=== PATIENT | female | born 1935 | race Caucasian/White ===

== ENCOUNTER 2017-02-19 16:38 | Emergency (ER) | payer MEDICARE, OTHER ==
[~2017-02-19] VITALS: Ht 152.4 cm; Wt 65.2 kg
[~2017-02-19 16:38] MED LIST: AMOX-291 PO; ATEN50TA41 PO; ATOR10TA9 PO; CALC-192 PO; FELO2.5T PO; FELO5TAB PO; MULT-6 PO
[2017-02-19] MEDS ORDERED: MAALOX/HYOSCYAMINE/LIDOCAINE 45 ML BOTTLE ONE (17:11)
[2017-02-19] MEDS ORDERED: ASPIRIN 81 MG TABLET CHEW ONE (17:11)
[2017-02-19] MEDS ORDERED: MAALOX/HYOSCYAMINE/LIDOCAINE 45 ML BOTTLE PO ONE (17:30)
[2017-02-19] MEDS ORDERED: ASPIRIN 81 MG TABLET CHEW PO ONE (17:30)
[2017-02-19 17:54] LABS: BLOOD UREA NITROGEN 22 mg/dL (7-18)
[2017-02-19 17:59] LABS: IS PT STATUS REG ER OR PRE ER? YES
[2017-02-19 18:48] VITALS: BP 144/77
== END 2017-02-19 18:50 | disposition home or self-care (01) ==
LOC: ED 18:43
DX: R07.89 Other chest pain (principal); I10 Essential (primary) hypertension; I48.91 Unspecified atrial fibrillation
CPT/HCPCS: 36415; 71010; 80048; 82040; 84484; 85025; 93005

== ENCOUNTER → 2017-03-01 | Outpatient (CLI) | payer MEDICARE, OTHER ==
[2017-03-01 09:09] LABS: PATH.CAST-FLAG NOT PRESENT; SPERM-FLAG NOT PRESENT; SRC-FLAG NOT PRESENT; XTAL-FLAG NOT PRESENT; YLC-FLAG NOT PRESENT
[2017-03-01 09:16] LABS: ASPARTATE AMINO TRANSFERASE 20 U/L (15-37); BLOOD UREA NITROGEN 19 mg/dL (7-18)
== END | disposition home or self-care (01) ==
LOC: LAB 08:41
PROVIDERS: ATTEND Internal Medicine Nephrology
DX: I12.9 Hypertensive chronic kidney disease with stage 1 through stage 4 chronic kidney disease, or unspecified chronic kidney disease (principal); N18.3 Chronic kidney disease, stage 3 (moderate); D09 Carcinoma in situ of other and unspecified sites; Z90.5 Acquired absence of kidney
CPT/HCPCS: 36415; 80053; 81001; 85025

== ENCOUNTER → 2017-04-20 | Outpatient (CLI) | payer MEDICARE, OTHER | END | disposition home or self-care (01) | LOC: CFH 09:03 | PROVIDERS: ATTEND Internal Medicine Nephrology | DX: D09 Carcinoma in situ of other and unspecified sites (principal); I12.9 Hypertensive chronic kidney disease with stage 1 through stage 4 chronic kidney disease, or unspecified chronic kidney disease; N17.9 Acute kidney failure, unspecified; I70.8 Atherosclerosis of other arteries; M51.36 Other intervertebral disc degeneration, lumbar region; J98.11 Atelectasis; N18.3 Chronic kidney disease, stage 3 (moderate); Z90.5 Acquired absence of kidney | CPT/HCPCS: 74150 ==

== ENCOUNTER → 2017-05-06 | Outpatient (CLI) | payer MEDICARE, OTHER ==
[~2017-05-06] MED LIST changes: +OMNIPAQUE 350 MG/ML, 100ML BOTTLE ONE
== END | disposition home or self-care (01) ==
LOC: CFH 13:14
PROVIDERS: ATTEND Internal Medicine Cardiovascular Disease
DX: Z13.6 Encounter for screening for cardiovascular disorders (principal); R07.89 Other chest pain; I10 Essential (primary) hypertension
CPT/HCPCS: 75571; 93306; Q9967

== ENCOUNTER → 2017-06-16 | Outpatient (CLI) | payer MEDICARE, OTHER ==
[~2017-06-16] MED LIST changes: -OMNIPAQUE 350 MG/ML, 100ML BOTTLE ONE
[2017-06-16 08:30] LABS: HEMATOCRIT 39.8 % (34.6-47.8); HEMOGLOBIN 13.1 g/dL (11.7-16.4); WHITE BLOOD COUNT 6.8 x10^3/uL (3.4-10)
[2017-06-16 08:43] LABS: ASPARTATE AMINO TRANSFERASE 20 U/L (15-37); BLOOD UREA NITROGEN 34 mg/dL (7-18)
== END | disposition home or self-care (01) ==
LOC: LAB 08:17
PROVIDERS: ATTEND Internal Medicine Nephrology
DX: I12.9 Hypertensive chronic kidney disease with stage 1 through stage 4 chronic kidney disease, or unspecified chronic kidney disease (principal); N18.9 Chronic kidney disease, unspecified; D09 Carcinoma in situ of other and unspecified sites
CPT/HCPCS: 36415; 80053; 81003; 85025

== ENCOUNTER → 2017-09-20 | Outpatient (CLI) | payer MEDICARE, OTHER ==
[~2017-09-20] MED LIST changes: +ALEN70TA3 PO
[2017-09-20 08:54] LABS: HEMATOCRIT 39.9 % (34.6-47.8); HEMOGLOBIN 13.4 g/dL (11.7-16.4); WHITE BLOOD COUNT 6.4 x10^3/uL (3.4-10)
== END | disposition home or self-care (01) ==
LOC: LAB 08:38
PROVIDERS: ATTEND Family Medicine
DX: R05 Cough (principal); M79.641 Pain in right hand; M79.642 Pain in left hand
CPT/HCPCS: 36415; 85025

== ENCOUNTER → 2017-11-11 | Outpatient (CLI) | payer MEDICARE, OTHER ==
[2017-11-11 09:02] LABS: ALANINE AMINOTRANSFERASE 20 U/L (12-78); ALBUMIN 3.6 g/dL (3.4-5.0); ANION GAP 6 mmol/L (5-15); CALCIUM 8.6 mg/dL (8.5-10.1); CHLORIDE 106 mmol/L (98-107); CREATININE 1.13 mg/dL (0.55-1.02)
[2017-11-11 09:05] LABS: ALKALINE PHOSPHATASE 51 U/L (45-117); BILIRUBIN,TOTAL 0.5 mg/dL (0.2-1.0); CHOL/HDL RATIO 3.7; CHOLESTEROL, TOTAL 192 mg/dL (140-239); HDL CHOL % 27 % (28-40); HDL CHOLESTEROL (DIRECT) 52 mg/dL (40-60); LDL CHOLESTEROL,CALCULATED 111 mg/dL (54-169); LDL/HDL RATIO 2.1 (0.5-3.0); TOTAL PROTEIN 7.2 g/dL (6.4-8.2); TRIGLYCERIDES 143 mg/dL (50-200); VLDL CHOLESTEROL 29 mg/dL (0-25)
== END | disposition home or self-care (01) ==
LOC: LAB 08:36
PROVIDERS: ATTEND Nurse Practitioner Family
DX: I10 Essential (primary) hypertension (principal); E78.00 Pure hypercholesterolemia, unspecified; R00.2 Palpitations; R07.89 Other chest pain
CPT/HCPCS: 36415; 80053; 80061

== ENCOUNTER → 2018-03-21 | Outpatient (CLI) | payer MEDICARE, OTHER ==
[2018-03-21 12:54] LABS: THYROID STIMULATING HORMONE 1.43 mIU/L (0.358-3.740)
== END ==
LOC: CFH 10:46
PROVIDERS: ATTEND Internal Medicine Cardiovascular Disease
DX: I08.1 Rheumatic disorders of both mitral and tricuspid valves (principal); I10 Essential (primary) hypertension; I48.91 Unspecified atrial fibrillation
CPT/HCPCS: 36415; 84436; 84443; 84481; 93306

== ENCOUNTER → 2019-03-27 | Outpatient (CLI) | payer MEDICARE, OTHER ==
[2019-03-27 08:40] LABS: ALANINE AMINOTRANSFERASE 18 U/L (12-78); ALBUMIN 3.7 g/dL (3.4-5.0); ANION GAP 3 mmol/L (5-15); CALCIUM 8.7 mg/dL (8.5-10.1); CHLORIDE 109 mmol/L (98-107); CREATININE 1.02 mg/dL (0.55-1.02)
[2019-03-27 08:43] LABS: ALKALINE PHOSPHATASE 64 U/L (45-117); BILIRUBIN,TOTAL 0.7 mg/dL (0.2-1.0); CHOL/HDL RATIO 3.4; CHOLESTEROL, TOTAL 175 mg/dL (140-239); HDL CHOL % 29 % (28-40); HDL CHOLESTEROL (DIRECT) 51 mg/dL (40-60); LDL CHOLESTEROL,CALCULATED 94 mg/dL (54-169); LDL/HDL RATIO 1.8 (0.5-3.0); TOTAL PROTEIN 7.2 g/dL (6.4-8.2); TRIGLYCERIDES 150 mg/dL (50-200); VLDL CHOLESTEROL 30 mg/dL (0-25)
== END | disposition home or self-care (01) ==
LOC: LAB 08:16
PROVIDERS: ATTEND Internal Medicine Cardiovascular Disease
DX: I10 Essential (primary) hypertension (principal); E78.00 Pure hypercholesterolemia, unspecified; R00.2 Palpitations
CPT/HCPCS: 36415; 80053; 80061

== ENCOUNTER 2019-05-24 01:25 | Inpatient (IN) | payer MEDICARE, OTHER ==
[~2019-05-24] VITALS: Ht 162.6 cm; Wt 59.6 kg
[2019-05-25 13:27] VITALS: BP 133/75
== END 2019-05-25 18:32 | disposition home or self-care (01) | DRG 418 ==
LOC: ED 03:41 → EDIP 04:05 → 3NE 05:11
PROVIDERS: ADMIT Internal Medicine; ATTEND Internal Medicine
PROC: 0FT44ZZ Resection of Gallbladder, Percutaneous Endoscopic Approach (ICD-10-PCS; principal; 2019-05-25)
DX: K80.65 Calculus of gallbladder and bile duct with chronic cholecystitis with obstruction (principal); D68.59 Other primary thrombophilia; I10 Essential (primary) hypertension; E78.5 Hyperlipidemia, unspecified; E86.0 Dehydration; F41.9 Anxiety disorder, unspecified; I48.0 Paroxysmal atrial fibrillation; R07.89 Other chest pain; Z79.82 Long term (current) use of aspirin; Z79.899 Other long term (current) drug therapy; Z90.5 Acquired absence of kidney; Z90.710 Acquired absence of both cervix and uterus; Z90.49 Acquired absence of other specified parts of digestive tract
CPT/HCPCS: 36415; 71045; 74181; 76700; 80053; 80076; 80307; 81001; 83690; 83735; 84436; 84443; 84484; 85025; 85610; 87086; 88304; 93005; 99285; G0378; J0171; J1100; J1644; J2405; J2704; J3010; J3490; C1760; J0330; J2060; J2270; J7030

== ENCOUNTER 2019-10-17 13:13 | Outpatient (CLI) | payer MEDICARE, OTHER ==
[~2019-10-17 13:13] MED LIST changes: +ACET500T76 PO; -FELO2.5T PO; +FELO2.5T4 PO; -FELO5TAB PO; +FELO5TAB4 PO; +METO-290 PO; +ONDA4TAB7 PO
== END 2019-10-17 23:59 | disposition home or self-care (01) ==
LOC: CFH 13:13
PROVIDERS: ATTEND Internal Medicine Cardiovascular Disease
DX: I08.3 Combined rheumatic disorders of mitral, aortic and tricuspid valves (principal); I71.2 Thoracic aortic aneurysm, without rupture
CPT/HCPCS: 93306; 93356

== ENCOUNTER → 2019-12-01 | Outpatient (CLI) | payer MEDICARE, OTHER ==
[2019-12-01 08:17] LABS: BASOPHILS # (AUTO) 0.03 x10^3/uL (0-0.1); BASOPHILS % (AUTO) 1 % (0-1); EOSINOPHILS # (AUTO) 0.12 x10^3/uL (0-0.4); EOSINOPHILS % (AUTO) 2 % (1-7); LYMPHOCYTES % (AUTO) 30 % (22-44); MD NO; MEAN CORPUSCULAR HEMOGLOBIN 29.7 pg (27.0-34.8); MEAN PLATELET VOLUME 7.7 fL (7.4-10.4); MONOCYTES # (AUTO) 0.51 x10^3/uL (0.2-0.8); MONOCYTES % (AUTO) 8 % (2-9); NEUTROPHILS # (AUTO) 3.67 x10^3/uL (1.8-6.8); NEUTROPHILS % (AUTO) 59 % (42-75); PLATELET COUNT 291 x10^3/uL (130-400); RED CELL DISTRIBUTION WIDTH 14.8 % (9.6-15.2)
[2019-12-01 08:26] LABS: ALBUMIN 3.6 g/dL (3.4-5.0); ANION GAP 3 mmol/L (5-15); CALCIUM 8.6 mg/dL (8.5-10.1); CHLORIDE 109 mmol/L (98-107)
[2019-12-01 08:37] LABS: ALANINE AMINOTRANSFERASE 18 U/L (12-78); ALKALINE PHOSPHATASE 59 U/L (45-117); BILIRUBIN,TOTAL 0.4 mg/dL (0.2-1.0); CHOLESTEROL, TOTAL 190 mg/dL (140-239); CREATININE 1.06 mg/dL (0.55-1.02); HDL CHOL % 33 % (28-40); HDL CHOLESTEROL (DIRECT) 63 mg/dL (40-60); LDL CHOLESTEROL,CALCULATED 108 mg/dL (54-169); LDL/HDL RATIO 1.7 (0.5-3.0); T4 (THYROXINE) 10.9 mcg/dL (4.8-13.9); TOTAL PROTEIN 7.1 g/dL (6.4-8.2); TRIGLYCERIDES 95 mg/dL (50-200); VLDL CHOLESTEROL 19 mg/dL (0-25)
== END | disposition home or self-care (01) ==
LOC: LAB 08:02
PROVIDERS: ATTEND Family Medicine
DX: I12.9 Hypertensive chronic kidney disease with stage 1 through stage 4 chronic kidney disease, or unspecified chronic kidney disease (principal); E78.2 Mixed hyperlipidemia; E04.2 Nontoxic multinodular goiter
CPT/HCPCS: 36415; 80053; 80061; 82043; 84436; 84443; 85025

== ENCOUNTER 2020-05-19 07:20 | Emergency (ER) | payer MEDICARE, OTHER ==
[~2020-05-19] VITALS: Ht 162.6 cm; Wt 52.8 kg
[2020-05-19 07:22] VITALS: BP 131/67
--- NOTE | 2020-05-19 07:52 | NUR ---
PT TO CT
[2020-05-19] MEDS ORDERED: MECLIZINE CHEWABLE 25 MG TAB PO ONE (08:00)
--- NOTE | 2020-05-19 08:09 | NUR ---
"Balance was off yesterday, I did nt drink enough." Pt reports loss of appetite. Denies cp or sob. NOTE WRIITEN BY DAUGHTER STATES HALLUCINATIONS AND DIZZINESS.PT IN BED WITH CONT ESCALATOR INSTALLER, SPO2, BP Q 30 MIN, SIDE RAILS UP X2, CALLL LIGHT IN REACH. FAMILY AT BEDSIDE. WENT OVER PLAN OF CARE FROM ORDER LISTR, AGREES TO PLAN.
[2020-05-19 08:18] LABS: BASOPHILS # (AUTO) 0.04 x10^3/uL (0-0.1); BASOPHILS % (AUTO) 1 % (0-1); EOSINOPHILS # (AUTO) 0.07 x10^3/uL (0-0.4); EOSINOPHILS % (AUTO) 1 % (1-7); LYMPHOCYTES # (AUTO) 1.78 x10^3/uL (1-3.4); LYMPHOCYTES % (AUTO) 28 % (22-44); MD NO; MEAN CORPUSCULAR HEMOGLOBIN 29.1 pg (27.0-34.8); MEAN CORPUSCULAR HGB CONC 32.2 g/dL (32.4-35.8); MEAN CORPUSCULAR VOLUME 90.3 fL (80-100); MONOCYTES # (AUTO) 0.53 x10^3/uL (0.2-0.8); MONOCYTES % (AUTO) 8 % (2-9); NEUTROPHILS % (AUTO) 62 % (42-75); PLATELET COUNT 289 x10^3/uL (130-400); RED CELL DISTRIBUTION WIDTH 14.1 % (9.6-15.2)
[2020-05-19] MEDS ORDERED: MECLIZINE CHEWABLE 25 MG TAB ONE (08:19)
[2020-05-19 08:29] LABS: ALANINE AMINOTRANSFERASE 16 U/L (12-78); ALBUMIN 4.1 g/dL (3.4-5.0); ANION GAP 5 mmol/L (5-15); CALCIUM 9.1 mg/dL (8.5-10.1); CHLORIDE 108 mmol/L (98-107); CREATININE 0.92 mg/dL (0.55-1.02)
[2020-05-19 08:33] LABS: ALKALINE PHOSPHATASE 59 U/L (45-117); BILIRUBIN,TOTAL 0.7 mg/dL (0.2-1.0); TOTAL PROTEIN 7.8 g/dL (6.4-8.2); TROPONIN I < 0.015 ng/mL (0.000-0.045)
--- NOTE | 2020-05-19 08:45 | NUR ---
PT AMBULATED TO THE RESTROOM WITH STEADY GAIT, URINE SENT TO LAB.
[2020-05-19 08:54] LABS: MICROSCOPIC AUTO
[2020-05-19] MEDS ORDERED: CEFTRIAXONE PMX 1GM/50ML 50 ML IVPB ONE (09:00)
[2020-05-19] MEDS ORDERED: CEFTRIAXONE PMX 1GM/50ML 50 ML ONE (09:00)
[2020-05-19] MEDS ORDERED: AZITHROMYCIN 500 MG in SODIUM CHLORIDE 0.9% 250 ML IVPB ONE (09:00)
== END 2020-05-19 10:28 | disposition home or self-care (01) ==
LOC: ED 08:56
DX: J15.9 Unspecified bacterial pneumonia (principal); R42 Dizziness and giddiness; R63.0 Anorexia; R53.83 Other fatigue; R51 Headache; R94.31 Abnormal electrocardiogram [ECG] [EKG]; I10 Essential (primary) hypertension; E78.5 Hyperlipidemia, unspecified; I48.91 Unspecified atrial fibrillation; Z90.89 Acquired absence of other organs; Z90.710 Acquired absence of both cervix and uterus; Z90.722 Acquired absence of ovaries, bilateral
CPT/HCPCS: 36415; 70450; 71045; 80053; 81001; 82140; 83605; 84484; 85025; 87040; 93005; 96365; 96368; 99285; J0456; J0696; J7050

== ENCOUNTER 2020-06-10 21:19 | Observation (INO) | payer MEDICARE, OTHER ==
[~2020-06-10] VITALS: Ht 162.6 cm; Wt 58.6 kg
--- NOTE | 2020-06-10 21:36 | NUR ---
ERP TO BEDSIDE.
[2020-06-10] MEDS ORDERED: MECL12.581 PO (22:17)
[2020-06-10 22:32] LABS: BASOPHILS # (AUTO) 0.06 x10^3/uL (0-0.1); BASOPHILS % (AUTO) 1 % (0-1); EOSINOPHILS # (AUTO) 0.13 x10^3/uL (0-0.4); EOSINOPHILS % (AUTO) 2 % (1-7); LYMPHOCYTES # (AUTO) 2.04 x10^3/uL (1-3.4); LYMPHOCYTES % (AUTO) 36 % (22-44); MD NO; MEAN CORPUSCULAR HEMOGLOBIN 29.7 pg (27.0-34.8); MEAN CORPUSCULAR HGB CONC 33.1 g/dL (32.4-35.8); MEAN CORPUSCULAR VOLUME 89.8 fL (80-100); MEAN PLATELET VOLUME 8.2 fL (7.4-10.4); MONOCYTES # (AUTO) 0.59 x10^3/uL (0.2-0.8); MONOCYTES % (AUTO) 10 % (2-9); NEUTROPHILS # (AUTO) 2.85 x10^3/uL (1.8-6.8); NEUTROPHILS % (AUTO) 50 % (42-75); PLATELET COUNT 318 x10^3/uL (130-400); RED BLOOD COUNT 4.39 x10^6/uL (3.82-5.3); RED CELL DISTRIBUTION WIDTH 14.1 % (9.6-15.2)
[2020-06-10 22:44] LABS: ALBUMIN 4.1 g/dL (3.4-5.0); ANION GAP 5 mmol/L (5-15); CALCIUM 9.6 mg/dL (8.5-10.1); CHLORIDE 105 mmol/L (98-107); CREATININE 0.94 mg/dL (0.55-1.02)
[2020-06-10 22:48] LABS: TROPONIN I < 0.015 ng/mL (0.000-0.045)
[2020-06-10 22:54] LABS: SALICYLATE LEVEL < 1.7 mg/dL (2.8-20.0)
--- NOTE | 2020-06-10 23:08 | NUR ---
PT WAS UP TO BEDSIDE COMMODE WITHOUT ASSISTANCE AT 10PM, ALL NEEDS MET AT THAT TIME. ADMITTING MD TO BEDSIDE NOW.
--- NOTE | 2020-06-10 23:25 | NUR ---
JAN GALVAN SUMMARY NOTE: THIS PT LIVES AT HOME WITH HER WHERE SHE AMBULATES INDEPENDENTLY AND IS ACTIVE AROUND THE HOUSE AND GARDEN. PER PT'S DAUGHTER, PT HAS BEEN MORE LONELY BECAUSE OF COVID AND HAS NOTICED HER TALKING TO PHOTOGRAPHS FOR THE LAST MONTH. TODAY PT STATES SHE ACCIDENTLY TOOK 7 OF HER METOPROLOL/ FELODIPINE PILLS FROM HER PILL BOX. PT STATES SHE DOESN'T KNOW WHY SHE TOOK SO MANY PILLS, BUT DENIES SI. PT STATES SHE WAS UPSET OVER CIRCUMSTANCES TODAY AND DID NOT WANT HER HEART TO GO INTO AFIB. PT HAS TANGENTIAL SPEECH MAKING HER A POOR HISTORIAN. PT PRESENTS TO THE ER WITH STABLE VS, A&O TO NORM. PT HAS REMAINED ON CARDIAC, BP AND O2 MONITORS. CALL LIGHT IN REACH, BED RAIL UP, AND VISITOR AT BEDSIDE.
[2020-06-10] MEDS ORDERED: ONDANSETRON 2MG/ML, 2ML IVPush PRN (23:30)
[2020-06-10] MEDS ORDERED: ACETAMINOPHEN 325 MG TABLET PO PRN (23:30)
[2020-06-10] MEDS ORDERED: ENOXAPARIN 40 MG/0.4 ML SQ SCH (23:30)
[2020-06-11] MEDS ORDERED: ENOXAPARIN 40 MG/0.4 ML ONE (00:05)
--- NOTE | 2020-06-11 00:13 | NUR ---
PT UP TO BEDSIDE COMMODE WITHOUT ASSISTANCE TO AMBULATE.
[2020-06-11] MEDS: SODIUM CHLORIDE 0.9% 1,000 ML IV SCH ×2 (00:21→09:31)
--- NOTE | 2020-06-11 00:28 | NUR ---
REPORT GIVEN TO FELI, FLOOR RN.
[2020-06-11 00:42] LABS: MICROSCOPIC NOT IND
[2020-06-11 00:51] VITALS: BP 120/67
[2020-06-11 06:21] LABS: CHLORIDE 107 mmol/L (98-107)
[2020-06-11 06:24] LABS: BASOPHILS # (AUTO) 0.05 x10^3/uL (0-0.1); BASOPHILS % (AUTO) 1 % (0-1); EOSINOPHILS # (AUTO) 0.09 x10^3/uL (0-0.4); EOSINOPHILS % (AUTO) 2 % (1-7); LYMPHOCYTES # (AUTO) 1.74 x10^3/uL (1-3.4); LYMPHOCYTES % (AUTO) 33 % (22-44); MD NO; MEAN CORPUSCULAR HEMOGLOBIN 29.6 pg (27.0-34.8); MEAN CORPUSCULAR VOLUME 89.6 fL (80-100); MEAN PLATELET VOLUME 8.5 fL (7.4-10.4); MONOCYTES # (AUTO) 0.53 x10^3/uL (0.2-0.8); MONOCYTES % (AUTO) 10 % (2-9); NEUTROPHILS # (AUTO) 2.86 x10^3/uL (1.8-6.8); NEUTROPHILS % (AUTO) 54 % (42-75); PLATELET COUNT 307 x10^3/uL (130-400); RED BLOOD COUNT 4.32 x10^6/uL (3.82-5.3)
[2020-06-11 06:52] LABS: ANION GAP 5 mmol/L (5-15); CALCIUM 9.5 mg/dL (8.5-10.1); CREATININE 0.78 mg/dL (0.55-1.02)
[2020-06-11 07:31] VITALS: BP 145/84
[2020-06-11] MEDS ORDERED: FAMOTIDINE 20 MG TABLET PO SCH (09:00)
[2020-06-11 14:41] VITALS: BP 141/82
[2020-06-12] MEDS ORDERED: FAMOTIDINE 20 MG TABLET PO SCH (09:00)
== END 2020-06-11 17:15 | disposition left against medical advice (07) ==
LOC: ED 22:46 → EDIP 06-11 00:15 → INTOOBSV 06-11 00:15 → 4WST 06-11 00:46
PROVIDERS: ADMIT Student in an Organized Health Care Education/Training Program; ATTEND Family Medicine
DX: T44.7X1A Poisoning by beta-adrenoreceptor antagonists, accidental (unintentional), initial encounter (principal); I10 Essential (primary) hypertension; I48.91 Unspecified atrial fibrillation; E78.5 Hyperlipidemia, unspecified; Z79.899 Other long term (current) drug therapy; Z85.528 Personal history of other malignant neoplasm of kidney
CPT/HCPCS: 36415; 80048; 80307; 81003; 82040; 83735; 84443; 84484; 85025; 93005; 96360; 96361; 96372; 97162; 97166; 99284; G0378; J1650; J7030

== ENCOUNTER 2020-09-26 12:28 | Outpatient (CLI) | payer MEDICARE, OTHER ==
[~2020-09-26 12:28] MED LIST changes: +LIDOCAINE 1%, 10ML ONE; +MECL12.582 PO
== END 2020-09-26 23:59 | disposition home or self-care (01) ==
LOC: RAD 12:28
PROVIDERS: ATTEND Surgery
DX: E04.2 Nontoxic multinodular goiter (principal); I10 Essential (primary) hypertension; E78.00 Pure hypercholesterolemia, unspecified; M19.90 Unspecified osteoarthritis, unspecified site; M91.0 Juvenile osteochondrosis of pelvis; Z90.710 Acquired absence of both cervix and uterus; Z90.49 Acquired absence of other specified parts of digestive tract; Z98.890 Other specified postprocedural states; Z90.5 Acquired absence of kidney; Z79.899 Other long term (current) drug therapy; Z72.89 Other problems related to lifestyle; Z82.49 Family history of ischemic heart disease and other diseases of the circulatory system
CPT/HCPCS: 10005; 88300

== ENCOUNTER 2020-12-08 07:04 | Emergency (ER) | payer MEDICARE, OTHER ==
[~2020-12-08] VITALS: Ht 162.6 cm; Wt 64.4 kg
[~2020-12-08 07:04] MED LIST changes: -LIDOCAINE 1%, 10ML ONE
--- NOTE | 2020-12-08 07:23 | NUR ---
Pt to room from triage, ambulatory with steady gait.
--- NOTE | 2020-12-08 07:36 | NUR ---
First contact with pt. Dr. Bender at bedside to evaluate pt. Pt's reports increased confusion this morning when pt woke up. Pt with hx Alzheimer's, pt denies pain or other complaint, reports "This is a scary time in [place], I was just thinking to get away from it." Pt A&O to self, place, situation, not date. Pt placed in gown, positioned for comfort in bed with warm blanket. Continuous heart, oxygen and BP monitors applied, all safety measures observed. Pt's at bedside, supportive.
[2020-12-08 08:01] LABS: BASOPHILS % (AUTO) 1 % (0-1); EOSINOPHILS % (AUTO) 2 % (1-7); LYMPHOCYTES % (AUTO) 28 % (22-44); MEAN CORPUSCULAR HEMOGLOBIN 28.8 pg (27.0-34.8); MEAN CORPUSCULAR HGB CONC 32.9 g/dL (32.4-35.8); MEAN PLATELET VOLUME 7.8 fL (7.4-10.4); MONOCYTES % (AUTO) 10 % (2-9); NEUTROPHILS % (AUTO) 59 % (42-75); PLATELET COUNT 316 x10^3/uL (130-400); RED BLOOD COUNT 4.47 x10^6/uL (3.82-5.3); RED CELL DISTRIBUTION WIDTH 14.6 % (9.6-15.2)
[2020-12-08 08:07] LABS: MD NO
[2020-12-08 08:08] LABS: ALBUMIN 3.7 g/dL (3.4-5.0); ANION GAP 4 mmol/L (5-15); CALCIUM 8.7 mg/dL (8.5-10.1); CHLORIDE 109 mmol/L (98-107); CREATININE 1.06 mg/dL (0.55-1.02)
--- NOTE | 2020-12-08 08:10 | NUR ---
Pt ambulatory to bathroom with steady gait to collect urine sample. While walking to the bathroom pt reports feeling nervous, states "That's not my , he's in the family, I'm worried he will kill me." Pt reassured that she is in a safe environment. made aware.
[2020-12-08 08:16] LABS: MICROSCOPIC AUTO
[2020-12-08] MEDS ORDERED: CEFDINIR 300 MG CAPSULE PO ONE (08:30)
--- NOTE | 2020-12-08 08:45 | NUR ---
Pt's daughter Chana Daniels called, Pt gives permission to give daughter updates via phone. Pt's daughter requesting social media sr strategy manager consult for memory care resources.[phone]
--- NOTE | 2020-12-08 09:05 | NUR ---
Pt continues resting in bed, NADN, denies needs.
[2020-12-08] MEDS ORDERED: CEFDINIR 300 MG CAPSULE ONE (09:22)
[2020-12-08 09:26] VITALS: BP 139/82
--- NOTE | 2020-12-08 09:51 | NUR ---
Attempted to contact drag out worker to inquire about resources. No answer, message left.
--- NOTE | 2020-12-08 10:06 | NUR ---
Contacted Chana Daniels via phone, no answer, message left regarding available memory care resources as she requested. Pt provided reassurance that the person with her is her Frank. Pt advised to reach out to her daughter or return to ER for any needs or concerns. Pt able to dress self fully, ambulatory out of unit with steady gait, accompanied by Frank.
== END 2020-12-08 10:09 | disposition home or self-care (01) ==
LOC: ED 07:46
DX: N30.00 Acute cystitis without hematuria (principal); R41.0 Disorientation, unspecified; R94.31 Abnormal electrocardiogram [ECG] [EKG]; I10 Essential (primary) hypertension; I48.91 Unspecified atrial fibrillation; E78.5 Hyperlipidemia, unspecified; Z90.89 Acquired absence of other organs; Z90.710 Acquired absence of both cervix and uterus; Z90.722 Acquired absence of ovaries, bilateral
CPT/HCPCS: 36415; 80048; 81001; 82040; 85025; 87077; 87086; 87186; 93005; 99284

== ENCOUNTER → 2021-01-09 | Outpatient (CLI) | payer MEDICARE, OTHER ==
[~2021-01-09] MED LIST changes: -MECL12.582 PO; +MECL12.590 PO
[2021-01-09 13:54] LABS: BASOPHILS % (AUTO) 2 % (0-1); EOSINOPHILS % (AUTO) 2 % (1-7); LYMPHOCYTES % (AUTO) 30 % (22-44); MD NO; MEAN CORPUSCULAR HGB CONC 33.2 g/dL (32.4-35.8); MEAN PLATELET VOLUME 7.7 fL (7.4-10.4); MONOCYTES % (AUTO) 9 % (2-9); NEUTROPHILS % (AUTO) 58 % (42-75); PLATELET COUNT 367 x10^3/uL (130-400); RED BLOOD COUNT 4.43 x10^6/uL (3.82-5.3); RED CELL DISTRIBUTION WIDTH 14.5 % (9.6-15.2)
[2021-01-09 14:04] LABS: ALANINE AMINOTRANSFERASE 20 U/L (12-78); ALBUMIN 3.5 g/dL (3.4-5.0); ANION GAP 4 mmol/L (5-15); CALCIUM 8.8 mg/dL (8.5-10.1); CHLORIDE 107 mmol/L (98-107)
[2021-01-09 14:15] LABS: ALKALINE PHOSPHATASE 66 U/L (45-117); BILIRUBIN,TOTAL 0.2 mg/dL (0.2-1.0); CHOL/HDL RATIO 4.2; CHOLESTEROL, TOTAL 239 mg/dL (140-239); HDL CHOL % 24 % (28-40); HDL CHOLESTEROL (DIRECT) 57 mg/dL (40-60); LDL CHOLESTEROL,CALCULATED 136 mg/dL (54-169); LDL/HDL RATIO 2.4 (0.5-3.0); T4 (THYROXINE) 9.5 mcg/dL (4.8-13.9); TOTAL PROTEIN 7.5 g/dL (6.4-8.2); TRIGLYCERIDES 232 mg/dL (50-200); VLDL CHOLESTEROL 46 mg/dL (0-25)
[2021-01-10 09:15] LABS: QUANTIFERON TB Ag1-NIL 2.23 (0.000-0.000)
== END | disposition home or self-care (01) ==
LOC: LAB 03-16 08:35
PROVIDERS: ATTEND Internal Medicine Cardiovascular Disease
DX: Z11.1 Encounter for screening for respiratory tuberculosis (principal); I10 Essential (primary) hypertension; E04.2 Nontoxic multinodular goiter; E78.2 Mixed hyperlipidemia; R41.0 Disorientation, unspecified
CPT/HCPCS: 36415; 80053; 80061; 82043; 84436; 84443; 85025; 86480

== ENCOUNTER 2021-01-18 17:21 | Emergency (ER) | payer MEDICARE, OTHER ==
[~2021-01-18] VITALS: Ht 162.6 cm; Wt 82.5 kg
[2021-01-18 17:38] VITALS: BP 160/89
--- NOTE | 2021-01-18 18:15 | NUR ---
PT AMBULATED TO RESTROOM WITH STEADY GAIT TO PROVIDE URINE SAMPLE. UA COLLECTED AND SENT TO LAB. AT BEDSIDE.
--- NOTE | 2021-01-18 18:16 | NUR ---
JAMES REQUESTED SW CONSULT
[2021-01-18 18:31] LABS: BASOPHILS % (AUTO) 1 % (0-1); EOSINOPHILS % (AUTO) 1 % (1-7); LYMPHOCYTES % (AUTO) 28 % (22-44); MEAN CORPUSCULAR HEMOGLOBIN 28.3 pg (27.0-34.8); MEAN CORPUSCULAR HGB CONC 32.8 g/dL (32.4-35.8); MEAN PLATELET VOLUME 7.7 fL (7.4-10.4); MONOCYTES % (AUTO) 8 % (2-9); NEUTROPHILS % (AUTO) 61 % (42-75); PLATELET COUNT 293 x10^3/uL (130-400); RED BLOOD COUNT 4.28 x10^6/uL (3.82-5.3); RED CELL DISTRIBUTION WIDTH 14.6 % (9.6-15.2)
[2021-01-18 18:32] LABS: MD NO
[2021-01-18 18:33] LABS: MICROSCOPIC AUTO
[2021-01-18 18:46] LABS: ALANINE AMINOTRANSFERASE 18 U/L (12-78); ALBUMIN 3.5 g/dL (3.4-5.0); ANION GAP 5 mmol/L (5-15); CALCIUM 8.6 mg/dL (8.5-10.1); CHLORIDE 109 mmol/L (98-107); CREATININE 1.06 mg/dL (0.55-1.02)
[2021-01-18 18:56] LABS: ALKALINE PHOSPHATASE 59 U/L (45-117); BILIRUBIN,TOTAL 0.2 mg/dL (0.2-1.0); TOTAL PROTEIN 7.2 g/dL (6.4-8.2)
--- NOTE | 2021-01-18 19:04 | NUR ---
DAUGHTER AT BEDSIDE.
--- NOTE | 2021-01-18 19:07 | NUR ---
SW AT BEDSIDE.
== END 2021-01-18 20:04 | disposition home or self-care (01) ==
LOC: ED 19:20
DX: F03.90 Unspecified dementia, unspecified severity, without behavioral disturbance, psychotic disturbance, mood disturbance, and anxiety (principal); R41.0 Disorientation, unspecified; I10 Essential (primary) hypertension; I48.91 Unspecified atrial fibrillation; Z90.89 Acquired absence of other organs; Z90.721 Acquired absence of ovaries, unilateral; Z90.710 Acquired absence of both cervix and uterus
CPT/HCPCS: 36415; 80053; 81001; 84443; 85025; 87077; 87086; 87186; 99283

== ENCOUNTER 2021-06-21 18:32 | Emergency (ER) | payer MEDICARE, OTHER ==
[~2021-06-21] VITALS: Ht 162.6 cm; Wt 66.0 kg
[2021-06-21 18:46] VITALS: BP 161/97
== END 2021-06-21 19:16 | disposition home or self-care (01) ==
LOC: ED 19:11
DX: G30.1 Alzheimer's disease with late onset (principal); F02.81 Dementia in other diseases classified elsewhere, unspecified severity, with behavioral disturbance; R41.82 Altered mental status, unspecified; I10 Essential (primary) hypertension; I48.91 Unspecified atrial fibrillation; Z90.89 Acquired absence of other organs; Z90.710 Acquired absence of both cervix and uterus; Z90.722 Acquired absence of ovaries, bilateral
CPT/HCPCS: 99281